=== PATIENT | female | born 2000 | race African-American/Black ===

== ENCOUNTER 2023-02-15 10:34 | Outpatient (CLI) | payer BC, SELFPAY ==
[2023-02-15 12:38] LABS: Beta HCG Quantitative < 2.39 mIU/ML
[2023-02-17 04:41] LABS: FSH 3.9 mIU/mL (***); Prolactin 9.7 ng/mL (***)
[2023-02-18 00:28] LABS: Testosterone Total 25 ng/dL (2-45)
[2023-02-19 17:26] LABS: Estradiol, Ultrasensitive 83 pg/mL
== END 2023-02-15 10:35 | disposition home or self-care (01) ==
PROVIDERS: Visit Provider Student in an Organized Health Care Education/Training Program
DX: N91.2 Amenorrhea, unspecified (principal)
CPT/HCPCS: 36415; 82670; 83001; 84146; 84403; 84443; 84702